=== PATIENT | female | born 1955 | race Caucasian/White ===

== ENCOUNTER 2019-04-24 07:35 | Outpatient (CLI) | payer OTHER | END 2019-04-24 23:59 | disposition home or self-care (01) | LOC: STAR 07:35 | PROVIDERS: ATTEND Podiatrist Foot & Ankle Surgery | DX: Z01.810 Encounter for preprocedural cardiovascular examination (principal); R93.41 Abnormal radiologic findings on diagnostic imaging of renal pelvis, ureter, or bladder | CPT/HCPCS: 93005 ==

== ENCOUNTER → 2019-05-27 | Outpatient (CLI) | payer OTHER | END | disposition home or self-care (01) | LOC: CFH 14:32 | PROVIDERS: ATTEND Internal Medicine Cardiovascular Disease | DX: I08.8 Other rheumatic multiple valve diseases (principal); E78.5 Hyperlipidemia, unspecified; Z82.49 Family history of ischemic heart disease and other diseases of the circulatory system | CPT/HCPCS: 93306 ==

== ENCOUNTER → 2020-06-27 | Outpatient (CLI) | payer OTHER ==
[~2020-06-27] MED LIST: ASPI-496 PO; KRIL500C PO; SIMV40TA20 PO; UBID100C24 PO
== END | disposition home or self-care (01) ==
LOC: STAR 13:33
PROVIDERS: ATTEND Podiatrist Foot & Ankle Surgery
DX: Z01.818 Encounter for other preprocedural examination (principal); M21.612 Bunion of left foot
CPT/HCPCS: 93005

== ENCOUNTER 2020-07-01 08:09 | Day surgery (SDC) | payer OTHER ==
[~2020-07-01] VITALS: Ht 162.6 cm; Wt 83.4 kg
[~2020-07-01 08:09] MED LIST changes: +BUPIVACAINE/PF-EPI 0.5% 1:200K ONE
[2020-07-01] MEDS ORDERED: LACTATED RINGERS 1,000 ML IV SCH (08:17)
[2020-07-01] MEDS ORDERED: CHLORHEXIDINE 15 ML UDC MM ONE (08:30)
[2020-07-01] MEDS ORDERED: LIDOCAINE-MPF 1%, 2ML INFIL ONE (08:30)
[2020-07-01] MEDS ORDERED: MIDAZOLAM 1 MG/ML, 2ML ONE (09:08)
[2020-07-01] MEDS ORDERED: FENTANYL PF 100 MCG/2ML ONE (09:08)
[2020-07-01] MEDS ORDERED: PROMETHAZINE 25 MG/ML, 1ML IVPush PRN (11:00)
[2020-07-01] MEDS ORDERED: HYDROmorphone 1 MG/ML, 1ML INJ IVPush PRN (11:00)
[2020-07-01] MEDS ORDERED: LORazepam 2 MG/ML, 1ML IVPush PRN (11:00)
[2020-07-01] MEDS ORDERED: LABETALOL 5MG/ML, 20ML IV PRN (11:00)
[2020-07-01] MEDS ORDERED: OXYcodone 5 MG/5 ML ORAL.SOL UDC PO PRN (11:00)
[2020-07-01] MEDS ORDERED: hydrALAzine 20 MG/ML, 1ML IV PRN (11:00)
[2020-07-01] MEDS ORDERED: FENTANYL PF 100 MCG/2ML IV PRN (11:00)
[2020-07-01] MEDS ORDERED: MEPERIDINE/PF 25MG/0.5ML IVPush PRN (11:00)
[2020-07-01] MEDS ORDERED: ALBUTEROL SULFATE 2.5 MG/3 ML NPPB PRN (11:00)
[2020-07-01] MEDS ORDERED: ACETAMINOPHEN 325 MG TABLET PO PRN (11:00)
[2020-07-01] MEDS ORDERED: KETOROLAC 30 MG/1 ML ONE (11:07)
[2020-07-01] MEDS ORDERED: CEFAZOLIN 1,000 MG ONE (11:07)
[2020-07-01] MEDS ORDERED: DEXAMETHASONE 4 MG/ML, 1ML ONE (11:07)
[2020-07-01] MEDS ORDERED: ONDANSETRON 2MG/ML, 2ML ONE (11:07)
[2020-07-01] MEDS ORDERED: PROPOFOL 10 MG/ML, 20ML ONE (11:07)
[2020-07-01] MEDS ORDERED: LIDOCAINE-MPF 2% ,5ML ONE (11:07)
== END 2020-07-01 12:50 | disposition home or self-care (01) ==
LOC: OUT 08:09
PROVIDERS: ATTEND Podiatrist Foot & Ankle Surgery
DX: M21.612 Bunion of left foot (principal); M35.7 Hypermobility syndrome; E78.5 Hyperlipidemia, unspecified; K21.9 Gastro-esophageal reflux disease without esophagitis; K90.0 Celiac disease; M19.90 Unspecified osteoarthritis, unspecified site; E66.9 Obesity, unspecified; Z68.32 Body mass index [BMI] 32.0-32.9, adult; Z79.82 Long term (current) use of aspirin; Z79.899 Other long term (current) drug therapy; Z82.49 Family history of ischemic heart disease and other diseases of the circulatory system
CPT/HCPCS: 28297; 36415; 87635; C1713; J0690; J1100; J1885; J2250; J2405; J2704; J3010; J7120

== ENCOUNTER 2021-07-31 12:18 | Outpatient (CLI) | payer OTHER ==
[~2021-07-31 12:18] MED LIST changes: -BUPIVACAINE/PF-EPI 0.5% 1:200K ONE
== END 2021-07-31 23:59 | disposition home or self-care (01) ==
LOC: CVU 12:18
PROVIDERS: ATTEND Internal Medicine Cardiovascular Disease
DX: I37.1 Nonrheumatic pulmonary valve insufficiency (principal); E78.5 Hyperlipidemia, unspecified; Z82.49 Family history of ischemic heart disease and other diseases of the circulatory system
CPT/HCPCS: 93306